=== PATIENT | female | born 1935 | race Hispanic/Latino ===

== ENCOUNTER 2020-09-09 19:42 | Inpatient (IN) | payer MEDICARE, OTHER ==
--- NOTE | 2020-09-10 10:01 | Consultation ---
History of Present Illness - Reason for Consult Consult date: 09/10/20 Medical management Requesting physician: KIERRA MORALES - History of Present Illness 85 YO Female with Vascular Dementia with Behavioral Disturbance, Cerebral Atherosclerosis admitted to [facility] for phychiatric stabilization. Consult placed by Dr. Morales for medical management. Pt seen and evaluated in the recreation room. Patient denies fever, chills, chest pain, palpitation, productive cough, skin rash, recent ill contacts, or known exposure to COVID-19. No reported nursing events. Past History Past Medical History: other (see HPI) Past Surgical History: No surgical history, Other (reviewed) Social history: single. denies: smoking, alcohol abuse Family history: no significant family history (reviewed) Medications and Allergies Allergies Allergy/AdvReac Type Severity Reaction Status Date / Time aspirin Allergy Unknown Unknown Verified 09/10/20 13:51 Home Medications Medication Instructions Recorded Confirmed Last Taken Type ALPRAZolam [Xanax TAB] 0.5 mg PO TID PRN #90 09/18/20 Unknown Rx Divalproex Sprinkle [Depakote 250 mg PO BID #60 cap 09/18/20 Unknown Rx Sprinkle] risperiDONE [RisperDAL] 0.5 mg PO BID #60 tablet 09/18/20 Unknown Rx traZODone [Desyrel] 75 mg PO QHS #45 tablet 09/18/20 Unknown Rx Active Meds: Active Medications Trazodone HCl (Trazodone 50 Mg Tab) 50 mg PO QHS [facility] Review of Systems Constitutional: no weight loss, no weight gain, no fever, no sweats Ears, nose, mouth and throat: no ear pain, no ear discharge, no decreased heari ng, no nose pain, no nasal congestion, no nasal discharge Breasts: no change in shape, no swelling, no mass Cardiovascular: no chest pain, no orthopnea, no edema Respiratory: no cough, no cough with sputum, no hemoptysis, no shortness of breath Gastrointestinal: no abdominal pain, no nausea, no vomiting, no diarrhea, no constipation, no change in bowel habits Genitourinary Female: no pelvic pain, no flank pain, no dysuria, no urinary frequency, no urgency Rectal: no pain, no incontinence, no bleeding Musculoskeletal: no neck stiffness, no neck pain Integumentary: no rash, no pruritis, no redness, no sores, no wounds, no jaundice Neurological: no head injury, no transient paralysis, no weakness, no numbness, no tingling, no syncope, no tremors Psychiatric: no anxiety, no memory loss, no change in libido Endocrine: no cold intolerance, no heat intolerance, no excessive thirst, no polydipsia, no nocturia, no excessive sweating Hematologic/Lymphatic: no easy bruising, no easy bleeding Allergic/Immunologic: no urticaria, no allergic rhinitis, no wheezing Exam - Constitutional General appearance: Present: no acute distress, well-nourished - EENT Eyes: Present: PERRL ENT: hearing intact, clear oral mucosa - Neck Neck: Present: supple, normal ROM - Respiratory Respiratory effort: normal Respiratory: bilateral: CTA - Cardiovascular Heart Sounds: Present: S1 & S2. Absent: rub, click - Extremities Extremities: pulses symmetrical, No edema Peripheral Pulses: within normal limits - Abdominal General gastrointestinal: Present: soft, non-tender, non-distended, normal bowel sounds Female genitourinary: Present: normal - Integumentary Integumentary: Present: clear, warm, dry - Musculoskeletal Musculoskeletal: gait normal, strength equal bilaterally - Psychiatric Psychiatric: appropriate mood/affect, intact judgment & insight - Neurologic Neurologic: CNII-XII intact, moves all extremities Results - Labs CBC & Chem 7: 09/13/20 19:58 Assessment and Plan - Patient Problems (1) Cerebral atherosclerosis Status: Acute Plan to address problem: Risk factor reduction, antiplatelet therapy as clinically dictated. (2) Dementia with behavioral disturbance Status: Acute Plan to address problem: Verbal prompting, verbal redirection, benzodiazepine therapy as clinically indicated.
[2020-09-10] MEDS: DIVALPROEX SPRINKLE 125 MG CAP PO SCH (21:24)
[2020-09-10] MEDS: traZODone 50 MG TAB PO SCH (21:24)
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
[2020-09-11] MEDS: ALPRAZolam 0.5 MG TAB PO SCH (10:53)
[2020-09-11] MEDS: DIVALPROEX SPRINKLE 125 MG CAP PO SCH ×2 (11:15→21:16)
[2020-09-11] MEDS: traZODone 50 MG TAB PO SCH (21:16)
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
[2020-09-12] MEDS: risperiDONE 0.25 MG TAB PO SCH ×2 (09:13→22:19)
[2020-09-12] MEDS: DIVALPROEX SPRINKLE 125 MG CAP PO SCH ×2 (09:13→22:19)
[2020-09-12] MEDS: ALPRAZolam 0.5 MG TAB PO SCH (09:13)
[2020-09-12] MEDS: traZODone 50 MG TAB PO SCH (22:20)
--- NOTE | 2020-09-13 08:00 | Progress Note ---
Subjective Date of service: 09/13/20 Principal diagnosis: Dementia with behavioral disturbance Subjective Comment: Per Psych Nurse:Today the patient spent "busy" on the unit. She rarely sits still. She paces the hallway and in the activity room. She asks staff repeatedly when she can go home. She gets an idea in her mind and will not let it go. Whatever she believes she will stubbornly refuse to think anything else. Her memory is so short that she forgets redirection in minutes. She denies si/hi/ah/vh. She is delusional about not being in a hospital and denying that she needs help. Her appetite is good and she is medication compliant. Will continue to monitor patient for safety. Psych Progress Patient with history of Dementia. She states she is doing okay this AM she guess, sleeping good and states she knows she is not in [place]. Pt asked when she will be released from here and be allowed to go home. Reason for continued acute inpatient psychiatric hospitalization: Patient to be observed for mood/behavior disturbance of aggressive behavior as reported prior to admission REVIEW OF SYSTEMS ROS cannot be reliably obtained from the patient due to her confusion MENTAL STATUS EXAMINATION General Appearance and Behavior: Age appropriate, good hygiene, wearing appropriate clothes, uncooperative polite with questioning. Cooperation: engaged Psychomotor Behavior: Psychomotor normal Mood: Affect and affective range: Flat Thought Process: Tangential, loose associattion Thought Content: Paranoid and confused Speech: Normal volume, Regular rate and rhythm, Intellectual Functioning: Poor Suicidal Ideation: N/A Homicidal Ideation: N/A Impulse Control: Unimpaired Insight and Judgment: Impaired Memory: memory impaired Attention:Distractible, Orientation: Alert, but disoriented and confused Assessment and Plan - Psychiatric problem (1) Dementia with behavioral disturbance Current Visit: Yes Status: Acute Treatment Plan Continue current medication. Patient on Risperdal and Depakote Patient admitted for inpatient psychiatric evaluation, medication adjustment and close monitoring The patient's behavior, mood, sleep and appetite will be closely monitored. Patient enrolled in individual and group therapeutic sessions and encouraged to attend. Patient provided with a safe and structured environment. Patient's physical health needs will be addressed by the Hospitalist. Hospitalist Consulted Labs including CBC, CMP, Lipid profile and Hemoglobin A1C levels ordered for [place] Social Assessment will be completed and the Instrument Mechanic Weapons System will work with patient and family to ensure a suitable and safe disposition Medication adjustment will be made as clinically indicated Usual Wellness Anabaptism/Preservation: - Start Trazodone 50 mg po QHS & 50 mg po QHS PRN between 10 PM & 2 AM for insomnia - Start Melatonin 5 mg po QHS to promote circadian rhythm - Start [place]-3 for brain health, reduce impulsivity, and as adjunctive treatment for mood disorder, continue upon discharge given overall benefits. - Start B1 prophylaxis with 200 mg po for 5 days The patient agreed on the treatment plan, understood the risk, benefit, alternative treatment, potential consequence of no treatment, and gave informed consent. Initial Certification Inpatient psych services: I certify that the inpatient psychiatric services are required for treatment that could reasonably be expected to improve the patient's condition. Estimated days: 5 Post hospital care: primary care provider, psychiatric provider Assessment and Plan - Patient Problems (1) Dementia with behavioral disturbance Current Visit: Yes Status: Acute Medications and Allergies Allergies Allergy/AdvReac Type Severity Reaction Status Date / Time aspirin Allergy Unknown Unknown Verified 09/10/20 13:51 Home Medications Medication Instructions Recorded Confirmed Last Taken Type ALPRAZolam [Xanax TAB] 0.5 mg PO TID PRN 09/10/20 09/10/20 Unknown History Divalproex Sprinkle [DepaKOTE 250 mg PO BID 09/10/20 09/10/20 Unknown History SPRINKLE] Active Meds: Active Medications Alprazolam (Alprazolam 0.5 Mg Tab) 0.5 mg PO QAM [facility] Last Admin: 09/12/20 09:13 Dose: 0.5 mg Documented by: Divalproex Sodium (Divalproex Sprinkle 125 Mg Cap) 250 mg PO BID [facility] Last Admin: 09/12/20 22:19 Dose: 250 mg Documented by: Risperidone (Risperidone 0.25 Mg Tab) 0.5 mg PO BID [facility] Last Admin: 09/12/20 22:19 Dose: 0.5 mg Documented by: Trazodone HCl (Trazodone 50 Mg Tab) 50 mg PO QHS [facility] Last Admin: 09/12/20 22:20 Dose: 50 mg Documented by: Results - Results Labs/Vitals: Laboratory Last Values POC Glucose 92 mg/dL (70-105) 09/12/20 06:22 Last Vital Signs Temp 98.1 F 09/12/20 19:27 Pulse 102 H 09/12/20 19:27 Resp 20 09/12/20 19:27 BP 109/73 09/12/20 19:27 Pulse Ox 95 09/12/20 19:27
[2020-09-13] MEDS: ALPRAZolam 0.5 MG TAB PO SCH (10:49)
[2020-09-13] MEDS: risperiDONE 0.25 MG TAB PO SCH ×2 (10:49→21:34)
[2020-09-13] MEDS: DIVALPROEX SPRINKLE 125 MG CAP PO SCH ×2 (10:49→21:34)
[2020-09-13 21:07] LABS: Alanine Aminotransferase 14 units/L (7-56); Albumin 3.8 g/dL (3.9-5); Blood Urea Nitrogen 16 mg/dL (7-17); Calcium 9.2 mg/dL (8.4-10.2); HDL Cholesterol 50 mg/dL (40-59); Hemolysis Index 7; LDL Cholesterol,Direct 106 mg/dL (50-130)
[2020-09-13 21:09] LABS: BUN/Creatinine Ratio 32
[2020-09-13] MEDS: traZODone 50 MG TAB PO SCH (21:34)
--- NOTE | 2020-09-14 07:58 | Progress Note ---
Subjective Date of service: 09/14/20 Principal diagnosis: Dementia with behavioral disturbance Subjective Comment: Per Psych Nurse:pt spent last evening in activity room interacting appropriately with selected peer, pt did not wander around the unit, pt is less confused, able to make needs know and follows direction, medication compliant, took 1 cap of depakote, pt stated that she can not take a lot of medication, no behavioral issue, slept all night, no distress noted, will continue to monitor for safety. Psych Progress Patient with Severe dementia, seen this AM and states she would like to get a ticket and fly back to [place], says thats where are family is and she would like to go there Reason for continued acute inpatient psychiatric hospitalization: Patient to be observed for mood/behavior disturbance of aggressive behavior as reported prior to admission MENTAL STATUS EXAMINATION General Appearance and Behavior: Age appropriate, good hygiene, wearing appropriate clothes, uncooperative polite with questioning. Cooperation: engaged Psychomotor Behavior: Psychomotor normal Mood: Affect and affective range: Flat Thought Process: Tangential, loose associattion Thought Content: Paranoid and confused Speech: Normal volume, Regular rate and rhythm, Intellectual Functioning: Poor Suicidal Ideation: N/A Homicidal Ideation: N/A Impulse Control: Unimpaired Insight and Judgment: Impaired Memory: memory impaired Attention:Distractible, Orientation: Alert, but disoriented and confused Assessment and Plan - Psychiatric problem (1) Dementia with behavioral disturbance Current Visit: Yes Status: Acute Treatment Plan Continue current medication. Patient on Risperdal and Depakote Patient admitted for inpatient psychiatric evaluation, medication adjustment and close monitoring The patient's behavior, mood, sleep and appetite will be closely monitored. Patient enrolled in individual and group therapeutic sessions and encouraged to attend. Patient provided with a safe and structured environment. Patient's physical health needs will be addressed by the Hospitalist. Hospitalist Consulted Labs including CBC, CMP, Lipid profile and Hemoglobin A1C levels ordered for baseline reference Social Assessment will be completed and the Registration Specialist will work with patient and family to ensure a suitable and safe disposition Medication adjustment will be made as clinically indicated Usual Wellness Adventism/Preservation: - Start Trazodone 50 mg po QHS & 50 mg po QHS PRN between 10 PM & 2 AM for insomnia - Start Melatonin 5 mg po QHS to promote circadian rhythm - Start [place]-3 for brain health, reduce impulsivity, and as adjunctive treatment for mood disorder, continue upon discharge given overall benefits. - Start B1 prophylaxis with 200 mg po for 5 days The patient agreed on the treatment plan, understood the risk, benefit, alternative treatment, potential consequence of no treatment, and gave informed consent. Initial Certification Inpatient psych services: I certify that the inpatient psychiatric services are required for treatment that could reasonably be expected to improve the patient's condition. Estimated days: 5 Post hospital care: primary care provider, psychiatric provider Assessment and Plan - Patient Problems (1) Dementia with behavioral disturbance Current Visit: Yes Status: Acute Medications and Allergies Allergies Allergy/AdvReac Type Severity Reaction Status Date / Time aspirin Allergy Unknown Unknown Verified 09/10/20 13:51 Home Medications Medication Instructions Recorded Confirmed Last Taken Type ALPRAZolam [Xanax TAB] 0.5 mg PO TID PRN 09/10/20 09/10/20 Unknown History Divalproex Sprinkle [DepaKOTE 250 mg PO BID 09/10/20 09/10/20 Unknown History SPRINKLE] Active Meds: Active Medications Alprazolam (Alprazolam 0.5 Mg Tab) 0.5 mg PO QAM [facility] [place] Last Admin: 09/13/20 10:49 Dose: 0.5 mg Documented by: Divalproex Sodium (Divalproex Sprinkle 125 Mg Cap) 250 mg PO BID [facility] Last Admin: 09/13/20 21:34 Dose: 250 mg Documented by: Risperidone (Risperidone 0.25 Mg Tab) 0.5 mg PO BID [facility] [place] Last Admin: 09/13/20 21:34 Dose: 0.5 mg Documented by: Trazodone HCl (Trazodone 50 Mg Tab) 50 mg PO QHS [facility] Last Admin: 09/13/20 21:34 Dose: 50 mg Documented by: Results - Results Labs/Vitals: Laboratory Last Values Sodium 138 mmol/L (137-145) 09/13/20 19:58 Potassium 3.9 mmol/L (3.6-5.0) 09/13/20 19:58 Chloride 99.6 mmol/L (98-107) 09/13/20 19:58 Carbon Dioxide 33 mmol/L (22-30) H 09/13/20 19:58 Anion Gap 9 mmol/L 09/13/20 19:58 BUN 16 mg/dL (7-17) 09/13/20 19:58 Creatinine 0.5 mg/dL (0.6-1.2) L 09/13/20 19:58 Estimated GFR > 60 ml/min 09/13/20 19:58 BUN/Creatinine Ratio 32 % 09/13/20 19:58 Glucose 92 mg/dL (65-100) 09/13/20 19:58 POC Glucose 92 mg/dL (70-105) 09/12/20 06:22 Hemoglobin A1c 6.0 % (4-6) 09/13/20 19:58 Calcium 9.2 mg/dL (8.4-10.2) 09/13/20 19:58 Total Bilirubin 0.30 mg/dL (0.1-1.2) 09/13/20 19:58 AST 17 units/L (5-40) 09/13/20 19:58 ALT 14 units/L (7-56) 09/13/20 19:58 Alkaline Phosphatase 84 units/L (35-129) 09/13/20 19:58 Total Protein 6.8 g/dL (6.3-8.2) 09/13/20 19:58 Albumin 3.8 g/dL (3.9-5) L 09/13/20 19:58 Albumin/Globulin Ratio 1.3 % 09/13/20 19:58 Triglycerides 136 mg/dL (2-149) 09/13/20 19:58 Cholesterol 175 mg/dL (50-199) 09/13/20 19:58 LDL Cholesterol Direct 106 mg/dL (50-130) 09/13/20 19:58 HDL Cholesterol 50 mg/dL (40-59) 09/13/20 19:58 Cholesterol/HDL Ratio 3.50 % 09/13/20 19:58 TSH 1.400 mlU/mL (0.270-4.200) 09/13/20 19:58 Last Vital Signs Temp 98.0 F 09/13/20 22:00 Pulse 89 09/13/20 22:00 Resp 18 09/13/20 22:00 BP 93/54 09/13/20 22:00 Pulse Ox 97 09/13/20 22:00
[2020-09-14] MEDS: risperiDONE 0.25 MG TAB PO SCH ×2 (09:32→22:10)
[2020-09-14] MEDS: DIVALPROEX SPRINKLE 125 MG CAP PO SCH ×2 (09:32→22:08)
[2020-09-14] MEDS: ALPRAZolam 0.5 MG TAB PO SCH (09:32)
[2020-09-14] MEDS: traZODone 50 MG TAB PO SCH (22:11)
--- NOTE | 2020-09-15 07:53 | Progress Note ---
Subjective Date of service: 09/15/20 Principal diagnosis: Dementia with behavioral disturbance Subjective Comment: Per Psych Nurse:pt spent last evening in activity room interacting appropriately with selected peer, pt did not wander around the unit, pt is less confused, able to make needs know and follows direction, medication compliant, took 1 cap of depakote, pt stated that she can not take a lot of medication, no behavioral issue, slept all night, no distress noted, will continue to monitor for safety. Psych Progress Patient with Severe dementia, patient reported doing fine, she is she does not know why she is here that she did not do anything. Informed pt she is not here because she did something, we are just making sure she is fine. Reason for continued acute inpatient psychiatric hospitalization: Patient has been without behv issues for 3 days, will continue to observe, anticipate Sunday discharge. MENTAL STATUS EXAMINATION General Appearance and Behavior: Age appropriate, good hygiene, wearing appropriate clothes, uncooperative polite with questioning. Cooperation: engaged Psychomotor Behavior: Psychomotor normal Mood: Affect and affective range: Flat Thought Process: Tangential, loose associattion Thought Content: Paranoid and confused Speech: Normal volume, Regular rate and rhythm, Intellectual Functioning: Poor Suicidal Ideation: N/A Homicidal Ideation: N/A Impulse Control: Unimpaired Insight and Judgment: Impaired Memory: memory impaired Attention:Distractible, Orientation: Alert, but disoriented and confused Assessment and Plan - Psychiatric problem (1) Dementia with behavioral disturbance Current Visit: Yes Status: Acute Treatment Plan Continue current medication. Patient on Risperdal and Depakote Patient admitted for inpatient psychiatric evaluation, medication adjustment and close monitoring The patient's behavior, mood, sleep and appetite will be closely monitored. Patient enrolled in individual and group therapeutic sessions and encouraged to attend. Patient provided with a safe and structured environment. Patient's physical health needs will be addressed by the Hospitalist. Hospitalist Consulted Labs including CBC, CMP, Lipid profile and Hemoglobin A1C levels ordered for baseline reference Social Assessment will be completed and the Frontload Driver will work with patient and family to ensure a suitable and safe disposition Medication adjustment will be made as clinically indicated Usual Wellness Jain/Preservation: - Start Trazodone 50 mg po QHS & 50 mg po QHS PRN between 10 PM & 2 AM for insomnia - Start Melatonin 5 mg po QHS to promote circadian rhythm - Start [place]-3 for brain health, reduce impulsivity, and as adjunctive treatment for mood disorder, continue upon discharge given overall benefits. - Start B1 prophylaxis with 200 mg po for 5 days The patient agreed on the treatment plan, understood the risk, benefit, alternative treatment, potential consequence of no treatment, and gave informed consent. Initial Certification Inpatient psych services: I certify that the inpatient psychiatric services are required for treatment that could reasonably be expected to improve the patient's condition. Estimated days: 3 Post hospital care: primary care provider, psychiatric provider Assessment and Plan - Patient Problems (1) Dementia with behavioral disturbance Current Visit: Yes Status: Acute Medications and Allergies Allergies Allergy/AdvReac Type Severity Reaction Status Date / Time aspirin Allergy Unknown Unknown Verified 09/10/20 13:51 Home Medications Medication Instructions Recorded Confirmed Last Taken Type ALPRAZolam [Xanax TAB] 0.5 mg PO TID PRN 09/10/20 09/10/20 Unknown History Divalproex Sprinkle [DepaKOTE 250 mg PO BID 09/10/20 09/10/20 Unknown History SPRINKLE] Active Meds: Active Medications Alprazolam (Alprazolam 0.5 Mg Tab) 0.5 mg PO QAM [facility] Last Admin: 09/14/20 09:32 Dose: 0.5 mg Documented by: Divalproex Sodium (Divalproex Sprinkle 125 Mg Cap) 250 mg PO BID [facility] Last Admin: 09/14/20 22:08 Dose: 250 mg Documented by: Risperidone (Risperidone 0.25 Mg Tab) 0.5 mg PO BID [facility] Last Admin: 09/14/20 22:10 Dose: 0.5 mg Documented by: Trazodone HCl (Trazodone 50 Mg Tab) 50 mg PO QHS [facility] Last Admin: 09/14/20 22:11 Dose: 50 mg Documented by: Results - Results Labs/Vitals: Laboratory Last Values Sodium 138 mmol/L (137-145) 09/13/20 19:58 Potassium 3.9 mmol/L (3.6-5.0) 09/13/20 19:58 Chloride 99.6 mmol/L (98-107) 09/13/20 19:58 Carbon Dioxide 33 mmol/L (22-30) H 09/13/20 19:58 Anion Gap 9 mmol/L 09/13/20 19:58 BUN 16 mg/dL (7-17) 09/13/20 19:58 Creatinine 0.5 mg/dL (0.6-1.2) L 09/13/20 19:58 Estimated GFR > 60 ml/min 09/13/20 19:58 BUN/Creatinine Ratio 32 % 09/13/20 19:58 Glucose 92 mg/dL (65-100) 09/13/20 19:58 POC Glucose 92 mg/dL (70-105) 09/12/20 06:22 Hemoglobin A1c 6.0 % (4-6) 09/13/20 19:58 Calcium 9.2 mg/dL (8.4-10.2) 09/13/20 19:58 Total Bilirubin 0.30 mg/dL (0.1-1.2) 09/13/20 19:58 AST 17 units/L (5-40) 09/13/20 19:58 ALT 14 units/L (7-56) 09/13/20 19:58 Alkaline Phosphatase 84 units/L (35-129) 09/13/20 19:58 Total Protein 6.8 g/dL (6.3-8.2) 09/13/20 19:58 Albumin 3.8 g/dL (3.9-5) L 09/13/20 19:58 Albumin/Globulin Ratio 1.3 % 09/13/20 19:58 Triglycerides 136 mg/dL (2-149) 09/13/20 19:58 Cholesterol 175 mg/dL (50-199) 09/13/20 19:58 LDL Cholesterol Direct 106 mg/dL (50-130) 09/13/20 19:58 HDL Cholesterol 50 mg/dL (40-59) 09/13/20 19:58 Cholesterol/HDL Ratio 3.50 % 09/13/20 19:58 TSH 1.400 mlU/mL (0.270-4.200) 09/13/20 19:58 Last Vital Signs Temp 97.4 F L 09/14/20 20:44 Pulse 91 H 09/14/20 20:44 Resp 20 09/14/20 20:44 BP 102/61 09/14/20 20:44 Pulse Ox 97 09/14/20 20:44
[2020-09-15] MEDS: risperiDONE 0.25 MG TAB PO SCH ×2 (10:18→21:27)
[2020-09-15] MEDS: DIVALPROEX SPRINKLE 125 MG CAP PO SCH ×2 (10:18→21:27)
[2020-09-15] MEDS: ALPRAZolam 0.5 MG TAB PO SCH (10:18)
[2020-09-15] MEDS: traZODone 50 MG TAB PO SCH (21:27)
--- NOTE | 2020-09-16 07:57 | Progress Note ---
Subjective Date of service: 09/16/20 Principal diagnosis: Dementia with behavioral disturbance Subjective Comment: Per Psych Nurse:pt spent last evening in activity room watching television, pt is alert and oriented to person, pleasantly confused, calm and cooperative, able to make needs known, medication compliant, ate 50% of snack, presents as sleeping for 7hrs, no distress noted, will continue to monitor for safety. Psych Progress Patient seen this AM, pt asking to be taken upstairs and I informed patient there is no upstairs. Patient walked off a bit and came back again asking the same thing. Patient with history of dementia and behv issues. Patient has been clam cooperative and med compliant Reason for continued acute inpatient psychiatric hospitalization: Pt can be discharged, stabilized per psychiatric stand point. MENTAL STATUS EXAMINATION General Appearance and Behavior: Age appropriate, good hygiene, wearing appropriate clothes, uncooperative polite with questioning. Cooperation: engaged Psychomotor Behavior: Psychomotor normal Mood: Affect and affective range: Flat Thought Process: Tangential, loose associattion Thought Content: Paranoid and confused Speech: Normal volume, Regular rate and rhythm, Intellectual Functioning: Poor Suicidal Ideation: N/A Homicidal Ideation: N/A Impulse Control: Unimpaired Insight and Judgment: Impaired Memory: memory impaired Attention:Distractible, Orientation: Alert, but disoriented and confused Assessment and Plan - Psychiatric problem (1) Dementia with behavioral disturbance Current Visit: Yes Status: Acute Treatment Plan Continue current medication. Patient on Risperdal and Depakote Patient admitted for inpatient psychiatric evaluation, medication adjustment and close monitoring The patient's behavior, mood, sleep and appetite will be closely monitored. Patient enrolled in individual and group therapeutic sessions and encouraged to attend. Patient provided with a safe and structured environment. Patient's physical health needs will be addressed by the Hospitalist. Hospitalist Consulted Labs including CBC, CMP, Lipid profile and Hemoglobin A1C levels ordered for baseline reference Social Assessment will be completed and the Police Detective will work with patient and family to ensure a suitable and safe disposition Medication adjustment will be made as clinically indicated Usual Wellness Baptism/Preservation: - Start Trazodone 50 mg po QHS & 50 mg po QHS PRN between 10 PM & 2 AM for insomnia - Start Melatonin 5 mg po QHS to promote circadian rhythm - Start [place]-3 for brain health, reduce impulsivity, and as adjunctive treatment for mood disorder, continue upon discharge given overall benefits. - Start B1 prophylaxis with 200 mg po for 5 days The patient agreed on the treatment plan, understood the risk, benefit, alternative treatment, potential consequence of no treatment, and gave informed consent. Initial Certification Inpatient psych services: I certify that the inpatient psychiatric services are required for treatment that could reasonably be expected to improve the patient's condition. Estimated days: 3 Post hospital care: primary care provider, psychiatric provider Assessment and Plan - Patient Problems (1) Dementia with behavioral disturbance Current Visit: Yes Status: Acute Medications and Allergies Allergies Allergy/AdvReac Type Severity Reaction Status Date / Time aspirin Allergy Unknown Unknown Verified 09/10/20 13:51 Home Medications Medication Instructions Recorded Confirmed Last Taken Type ALPRAZolam [Xanax TAB] 0.5 mg PO TID PRN 09/10/20 09/10/20 Unknown History Divalproex Sprinkle [DepaKOTE 250 mg PO BID 09/10/20 09/10/20 Unknown History SPRINKLE] Active Meds: Active Medications Alprazolam (Alprazolam 0.5 Mg Tab) 0.5 mg PO QAM [facility] Last Admin: 09/15/20 10:18 Dose: 0.5 mg Documented by: Divalproex Sodium (Divalproex Sprinkle 125 Mg Cap) 250 mg PO BID [facility] Last Admin: 09/15/20 21:27 Dose: 250 mg Documented by: Risperidone (Risperidone 0.25 Mg Tab) 0.5 mg PO BID [facility] Last Admin: 09/15/20 21:27 Dose: 0.5 mg Documented by: Trazodone HCl (Trazodone 50 Mg Tab) 50 mg PO QHS [facility] Last Admin: 09/15/20 21:27 Dose: 50 mg Documented by: Results - Results Labs/Vitals: Laboratory Last Values Sodium 138 mmol/L (137-145) 09/13/20 19:58 Potassium 3.9 mmol/L (3.6-5.0) 09/13/20 19:58 Chloride 99.6 mmol/L (98-107) 09/13/20 19:58 Carbon Dioxide 33 mmol/L (22-30) H 09/13/20 19:58 Anion Gap 9 mmol/L 09/13/20 19:58 BUN 16 mg/dL (7-17) 09/13/20 19:58 Creatinine 0.5 mg/dL (0.6-1.2) L 09/13/20 19:58 Estimated GFR > 60 ml/min 09/13/20 19:58 BUN/Creatinine Ratio 32 % 09/13/20 19:58 Glucose 92 mg/dL (65-100) 09/13/20 19:58 POC Glucose 92 mg/dL (70-105) 09/12/20 06:22 Hemoglobin A1c 6.0 % (4-6) 09/13/20 19:58 Calcium 9.2 mg/dL (8.4-10.2) 09/13/20 19:58 Total Bilirubin 0.30 mg/dL (0.1-1.2) 09/13/20 19:58 AST 17 units/L (5-40) 09/13/20 19:58 ALT 14 units/L (7-56) 09/13/20 19:58 Alkaline Phosphatase 84 units/L (35-129) 09/13/20 19:58 Total Protein 6.8 g/dL (6.3-8.2) 09/13/20 19:58 Albumin 3.8 g/dL (3.9-5) L 09/13/20 19:58 Albumin/Globulin Ratio 1.3 % 09/13/20 19:58 Triglycerides 136 mg/dL (2-149) 09/13/20 19:58 Cholesterol 175 mg/dL (50-199) 09/13/20 19:58 LDL Cholesterol Direct 106 mg/dL (50-130) 09/13/20 19:58 HDL Cholesterol 50 mg/dL (40-59) 09/13/20 19:58 Cholesterol/HDL Ratio 3.50 % 09/13/20 19:58 TSH 1.400 mlU/mL (0.270-4.200) 09/13/20 19:58 Last Vital Signs Temp 97.3 F L 09/15/20 19:36 Pulse 91 H 09/15/20 19:37 Resp 17 09/15/20 19:36 BP 118/73 09/15/20 19:36 Pulse Ox 97 09/15/20 19:37
[2020-09-16] MEDS: ALPRAZolam 0.5 MG TAB PO SCH (09:00)
[2020-09-16] MEDS: DIVALPROEX SPRINKLE 125 MG CAP PO SCH ×2 (09:00→22:32)
[2020-09-16] MEDS: risperiDONE 0.25 MG TAB PO SCH ×2 (09:00→22:32)
--- NOTE | 2020-09-16 13:19 | XRay Report ---
CHEST 1 VIEW INDICATION / CLINICAL INFORMATION: r/o TB. Cough FINDINGS: SUPPORT DEVICES: None. HEART / MEDIASTINUM: No significant abnormality. LUNGS / PLEURA: No significant pulmonary or pleural abnormality. No pneumothorax. ADDITIONAL FINDINGS: No significant additional findings. IMPRESSION: 1. No acute findings. Streaky linear opacity noted within the medial aspects of both upper lungs coul d represent scarring. CT is suggested for further evaluation. Signer Name: Melecio Leslie MD Signed: 09/16/2020 1:14 PM Workstation Name: [id number]
[2020-09-16] MEDS: traZODone 50 MG TAB PO SCH (22:33)
[2020-09-17] MEDS: DIVALPROEX SPRINKLE 125 MG CAP PO SCH ×2 (09:09→21:24)
[2020-09-17] MEDS: ALPRAZolam 0.5 MG TAB PO SCH (09:10)
[2020-09-17] MEDS: risperiDONE 0.25 MG TAB PO SCH ×2 (09:10→21:25)
--- NOTE | 2020-09-17 10:57 | Progress Note ---
Subjective Date of service: 09/17/20 Principal diagnosis: Dementia with behavioral disturbance Subjective Comment: The patient was seen today. She is calm and cooperative. She is confused. She says she slept okay, but the nursing staff states the patient has been up all night. She denies SI/HI or hallucinations of any kind. Reason for continued acute inpatient psychiatric hospitalization: Patient can be discharged, stabilized per psychiatric stand point. She is awaiting placement per . As soon as this is secured the patient is cleared psych-hartley for discharge. MENTAL STATUS EXAMINATION General Appearance and Behavior: Age appropriate, good hygiene, wearing appropriate clothes, uncooperative polite with questioning. Cooperation: engaged Psychomotor Behavior: Psychomotor normal Mood: Affect and affective range: Flat Thought Process: Tangential, loose associattion Thought Content: Paranoid and confused Speech: Normal volume, Regular rate and rhythm, Intellectual Functioning: Poor Suicidal Ideation: N/A Homicidal Ideation: N/A Impulse Control: Unimpaired Insight and Judgment: Impaired Memory: memory impaired Attention:Distractible, Orientation: Alert, but disoriented and confused Assessment and Plan (1) Dementia with behavioral disturbance Current Visit: Yes Status: Acute Treatment Plan Patient admitted for inpatient psychiatric evaluation, medication adjustment and close monitoring The patient's behavior, mood, sleep and appetite will be closely monitored. Patient enrolled in individual and group therapeutic sessions and encouraged to attend. Patient provided with a safe and structured environment. Patient's physical health needs will be addressed by the Hospitalist. Hospitalist Consulted Labs including CBC, CMP, Lipid profile and Hemoglobin A1C levels ordered for baseline reference Social Assessment will be completed and the Water Vessel Captain will work with patient and family to ensure a suitable and safe disposition Medication adjustment will be made as clinically indicated Increased Trazodone 75mg po qhs to improve sleep Usual Wellness Druze/Preservation: - Start Trazodone 50 mg po QHS & 50 mg po QHS PRN between 10 PM & 2 AM for insomnia - Start Melatonin 5 mg po QHS to promote circadian rhythm - Start [place]-3 for brain health, reduce impulsivity, and as adjunctive treatment for mood disorder, continue upon discharge given overall benefits. - Start B1 prophylaxis with 200 mg po for 5 days The patient agreed on the treatment plan, understood the risk, benefit, alternative treatment, potential consequence of no treatment, and gave informed consent. Estimated days: 3 Post hospital care: primary care provider, psychiatric provider Medications and Allergies Allergies Allergy/AdvReac Type Severity Reaction Status Date / Time aspirin Allergy Unknown Unknown Verified 09/10/20 13:51 Home Medications Medication Instructions Recorded Confirmed Last Taken Type ALPRAZolam [Xanax TAB] 0.5 mg PO TID PRN 09/10/20 09/10/20 Unknown History Divalproex Sprinkle [DepaKOTE 250 mg PO BID 09/10/20 09/10/20 Unknown History SPRINKLE] Active Meds: Active Medications Alprazolam (Alprazolam 0.5 Mg Tab) 0.5 mg PO QAM [facility] Last Admin: 09/17/20 09:10 Dose: 0.5 mg Documented by: Divalproex Sodium (Divalproex Sprinkle 125 Mg Cap) 250 mg PO BID [facility] Last Admin: 09/17/20 09:09 Dose: 250 mg Documented by: Risperidone (Risperidone 0.25 Mg Tab) 0.5 mg PO BID [facility] Last Admin: 09/17/20 09:10 Dose: 0.5 mg Documented by: Trazodone HCl (Trazodone 50 Mg Tab) 50 mg PO QHS [facility] Last Admin: 09/16/20 22:33 Dose: 50 mg Documented by: Results - Results Labs/Vitals: Laboratory Last Values Sodium 138 mmol/L (137-145) 09/13/20 19:58 Potassium 3.9 mmol/L (3.6-5.0) 09/13/20 19:58 Chloride 99.6 mmol/L (98-107) 09/13/20 19:58 Carbon Dioxide 33 mmol/L (22-30) H 09/13/20 19:58 Anion Gap 9 mmol/L 09/13/20 19:58 BUN 16 mg/dL (7-17) 09/13/20 19:58 Creatinine 0.5 mg/dL (0.6-1.2) L 09/13/20 19:58 Estimated GFR > 60 ml/min 09/13/20 19:58 BUN/Creatinine Ratio 32 % 09/13/20 19:58 Glucose 92 mg/dL (65-100) 09/13/20 19:58 POC Glucose 92 mg/dL (70-105) 09/12/20 06:22 Hemoglobin A1c 6.0 % (4-6) 09/13/20 19:58 Calcium 9.2 mg/dL (8.4-10.2) 09/13/20 19:58 Total Bilirubin 0.30 mg/dL (0.1-1.2) 09/13/20 19:58 AST 17 units/L (5-40) 09/13/20 19:58 ALT 14 units/L (7-56) 09/13/20 19:58 Alkaline Phosphatase 84 units/L (35-129) 09/13/20 19:58 Total Protein 6.8 g/dL (6.3-8.2) 09/13/20 19:58 Albumin 3.8 g/dL (3.9-5) L 09/13/20 19:58 Albumin/Globulin Ratio 1.3 % 09/13/20 19:58 Triglycerides 136 mg/dL (2-149) 09/13/20 19:58 Cholesterol 175 mg/dL (50-199) 09/13/20 19:58 LDL Cholesterol Direct 106 mg/dL (50-130) 09/13/20 19:58 HDL Cholesterol 50 mg/dL (40-59) 09/13/20 19:58 Cholesterol/HDL Ratio 3.50 % 09/13/20 19:58 TSH 1.400 mlU/mL (0.270-4.200) 09/13/20 19:58 Last Vital Signs Temp 97.6 F 09/16/20 19:50 Pulse 93 H 09/16/20 19:50 Resp 18 09/16/20 19:50 BP 107/69 09/16/20 19:50 Pulse Ox 97 09/16/20 19:50
[2020-09-17] MEDS: traZODone 50 MG TAB PO SCH (21:24)
--- NOTE | 2020-09-18 08:56 | Progress Note ---
Subjective Date of service: 09/18/20 Principal diagnosis: Dementia with behavioral disturbance Subjective Comment: The patient was seen today. She is seen walking up to another patient. She is confused, but calm and pleasant. She denies SI/HI or hallucinations of any kind. Reason for continued acute inpatient psychiatric hospitalization: Patient can be discharged, stabilized per psychiatric stand point. She is awaiting placement per . As soon as this is secured the patient is cleared psych-hartley for discharge. REVIEW OF SYSTEMS Constitutional: Negative for weight loss ENT: Negative for stridor Respiratory: Negative for cough or hemoptysis All other systems reviewed and are negative MENTAL STATUS EXAMINATION General Appearance and Behavior: Age appropriate, good hygiene, wearing appropriate clothes, uncooperative polite with questioning. Cooperation: engaged Psychomotor Behavior: Psychomotor normal Mood: Affect and affective range: Flat Thought Process: Tangential, loose associattion Thought Content: Paranoid and confused Speech: Normal volume, Regular rate and rhythm, Intellectual Functioning: Poor Suicidal Ideation: N/A Homicidal Ideation: N/A Impulse Control: Unimpaired Insight and Judgment: Impaired Memory: memory impaired Attention:Distractible, Orientation: Alert, but disoriented and confused Assessment and Plan (1) Dementia with behavioral disturbance Current Visit: Yes Status: Acute Treatment Plan Patient admitted for inpatient psychiatric evaluation, medication adjustment and close monitoring The patient's behavior, mood, sleep and appetite will be closely monitored. Patient enrolled in individual and group therapeutic sessions and encouraged to attend. Patient provided with a safe and structured environment. Patient's physical health needs will be addressed by the Hospitalist. Hospitalist Consulted Labs including CBC, CMP, Lipid profile and Hemoglobin A1C levels ordered for baseline reference Social Assessment will be completed and the Wire Drawing Machine Tender will work with patient and family to ensure a suitable and safe disposition Medication adjustment will be made as clinically indicated Increased Trazodone 75mg po qhs to improve sleep yesterday No changes today Usual Wellness [employer]/Preservation: - Start Trazodone 50 mg po QHS & 50 mg po QHS PRN between 10 PM & 2 AM for insomnia - Start Melatonin 5 mg po QHS to promote circadian rhythm - Start [place]-3 for brain health, reduce impulsivity, and as adjunctive treatment for mood disorder, continue upon discharge given overall benefits. - Start B1 prophylaxis with 200 mg po for 5 days The patient agreed on the treatment plan, understood the risk, benefit, alternative treatment, potential consequence of no treatment, and gave informed consent. Estimated days: 3 Post hospital care: primary care provider, psychiatric provider Medications and Allergies Allergies Allergy/AdvReac Type Severity Reaction Status Date / Time aspirin Allergy Unknown Unknown Verified 09/10/20 13:51 Home Medications Medication Instructions Recorded Confirmed Last Taken Type ALPRAZolam [Xanax TAB] 0.5 mg PO TID PRN #90 09/18/20 Unknown Rx Divalproex Sprinkle [Depakote 250 mg PO BID #60 cap 09/18/20 Unknown Rx Sprinkle] risperiDONE [RisperDAL] 0.5 mg PO BID #60 tablet 09/18/20 Unknown Rx traZODone [Desyrel] 75 mg PO QHS #45 tablet 09/18/20 Unknown Rx Active Meds: Active Medications Alprazolam (Alprazolam 0.5 Mg Tab) 0.5 mg PO QAM [facility] Last Admin: 09/17/20 09:10 Dose: 0.5 mg Documented by: Divalproex Sodium (Divalproex Sprinkle 125 Mg Cap) 250 mg PO BID [facility] Last Admin: 09/17/20 21:24 Dose: 250 mg Documented by: Risperidone (Risperidone 0.25 Mg Tab) 0.5 mg PO BID [facility] Last Admin: 09/17/20 21:25 Dose: 0.5 mg Documented by: Trazodone HCl (Trazodone 50 Mg Tab) 75 mg PO QHS [facility] Last Admin: 09/17/20 21:24 Dose: 75 mg Documented by: Results - Results Labs/Vitals: Laboratory Last Values Sodium 138 mmol/L (137-145) 09/13/20 19:58 Potassium 3.9 mmol/L (3.6-5.0) 09/13/20 19:58 Chloride 99.6 mmol/L (98-107) 09/13/20 19:58 Carbon Dioxide 33 mmol/L (22-30) H 09/13/20 19:58 Anion Gap 9 mmol/L 09/13/20 19:58 BUN 16 mg/dL (7-17) 09/13/20 19:58 Creatinine 0.5 mg/dL (0.6-1.2) L 09/13/20 19:58 Estimated GFR > 60 ml/min 09/13/20 19:58 BUN/Creatinine Ratio 32 % 09/13/20 19:58 Glucose 92 mg/dL (65-100) 09/13/20 19:58 POC Glucose 92 mg/dL (70-105) 09/12/20 06:22 Hemoglobin A1c 6.0 % (4-6) 09/13/20 19:58 Calcium 9.2 mg/dL (8.4-10.2) 09/13/20 19:58 Total Bilirubin 0.30 mg/dL (0.1-1.2) 09/13/20 19:58 AST 17 units/L (5-40) 09/13/20 19:58 ALT 14 units/L (7-56) 09/13/20 19:58 Alkaline Phosphatase 84 units/L (35-129) 09/13/20 19:58 Total Protein 6.8 g/dL (6.3-8.2) 09/13/20 19:58 Albumin 3.8 g/dL (3.9-5) L 09/13/20 19:58 Albumin/Globulin Ratio 1.3 % 09/13/20 19:58 Triglycerides 136 mg/dL (2-149) 09/13/20 19:58 Cholesterol 175 mg/dL (50-199) 09/13/20 19:58 LDL Cholesterol Direct 106 mg/dL (50-130) 09/13/20 19:58 HDL Cholesterol 50 mg/dL (40-59) 09/13/20 19:58 Cholesterol/HDL Ratio 3.50 % 09/13/20 19:58 TSH 1.400 mlU/mL (0.270-4.200) 09/13/20 19:58 Last Vital Signs Temp 97.9 F 09/17/20 19:39 Pulse 83 09/17/20 19:39 Resp 18 09/17/20 19:39 BP 94/58 09/17/20 19:39 Pulse Ox 96 09/17/20 19:39
[2020-09-18] MEDS: risperiDONE 0.25 MG TAB PO SCH ×2 (09:14→21:08)
[2020-09-18] MEDS: ALPRAZolam 0.5 MG TAB PO SCH (09:15)
[2020-09-18] MEDS: DIVALPROEX SPRINKLE 125 MG CAP PO SCH ×2 (09:15→21:08)
[2020-09-18] MEDS: traZODone 50 MG TAB PO SCH (21:08)
--- NOTE | 2020-09-19 09:24 | Progress Note ---
Subjective Date of service: 09/19/20 Principal diagnosis: Dementia with behavioral disturbance Subjective Comment: The patient was seen today. She says she's doing "not too bad." She denies SI/HI. The nursing staff states the patient has not been sleeping and has been wandering. Reason for continued acute inpatient psychiatric hospitalization: Patient can be discharged, stabilized per psychiatric stand point. She is awaiting placement per . As soon as this is secured the patient is cleared psych-hartley for discharge. REVIEW OF SYSTEMS Constitutional: Negative for weight loss ENT: Negative for stridor Respiratory: Negative for cough or hemoptysis All other systems reviewed and are negative MENTAL STATUS EXAMINATION General Appearance and Behavior: Age appropriate, good hygiene, wearing appropriate clothes, uncooperative polite with questioning. Cooperation: engaged Psychomotor Behavior: Psychomotor normal Mood: Affect and affective range: Flat Thought Process: Tangential, loose associattion Thought Content: Paranoid and confused Speech: Normal volume, Regular rate and rhythm, Intellectual Functioning: Poor Suicidal Ideation: N/A Homicidal Ideation: N/A Impulse Control: Unimpaired Insight and Judgment: Impaired Memory: memory impaired Attention: Distractible, Orientation: Alert, but disoriented and confused Assessment and Plan (1) Dementia with behavioral disturbance Current Visit: Yes Status: Acute Treatment Plan Patient admitted for inpatient psychiatric evaluation, medication adjustment and close monitoring The patient's behavior, mood, sleep and appetite will be closely monitored. Patient enrolled in individual and group therapeutic sessions and encouraged to attend. Patient provided with a safe and structured environment. Patient's physical health needs will be addressed by the Hospitalist. Hospitalist Consulted Labs including CBC, CMP, Lipid profile and Hemoglobin A1C levels ordered for baseline reference Social Assessment will be completed and the Patient Financial Rep will work with patient and family to ensure a suitable and safe disposition Medication adjustment will be made as clinically indicated Mirtazepine 7.5mg po qhs Usual Wellness [employer]/Preservation: - Start Trazodone 50 mg po QHS & 50 mg po QHS PRN between 10 PM & 2 AM for insomnia - Start Melatonin 5 mg po QHS to promote circadian rhythm - Start [place]-3 for brain health, reduce impulsivity, and as adjunctive treatment for mood disorder, continue upon discharge given overall benefits. - Start B1 prophylaxis with 200 mg po for 5 days The patient agreed on the treatment plan, understood the risk, benefit, alternative treatment, potential consequence of no treatment, and gave informed consent. Estimated days: 3 Post hospital care: primary care provider, psychiatric provider Medications and Allergies Allergies Allergy/AdvReac Type Severity Reaction Status Date / Time aspirin Allergy Unknown Unknown Verified 09/10/20 13:51 Home Medications Medication Instructions Recorded Confirmed Last Taken Type ALPRAZolam [Xanax TAB] 0.5 mg PO TID PRN #90 09/18/20 Unknown Rx Divalproex Sprinkle [Depakote 250 mg PO BID #60 cap 09/18/20 Unknown Rx Sprinkle] risperiDONE [RisperDAL] 0.5 mg PO BID #60 tablet 09/18/20 Unknown Rx traZODone [Desyrel] 75 mg PO QHS #45 tablet 09/18/20 Unknown Rx Active Meds: Active Medications Alprazolam (Alprazolam 0.5 Mg Tab) 0.5 mg PO QAM [facility] Last Admin: 09/18/20 09:15 Dose: 0.5 mg Documented by: Divalproex Sodium (Divalproex Sprinkle 125 Mg Cap) 250 mg PO BID [facility] Last Admin: 09/18/20 21:08 Dose: 250 mg Documented by: Risperidone (Risperidone 0.25 Mg Tab) 0.5 mg PO BID [facility] Last Admin: 09/18/20 21:08 Dose: 0.5 mg Documented by: Trazodone HCl (Trazodone 50 Mg Tab) 75 mg PO QHS [facility] Last Admin: 09/18/20 21:08 Dose: 75 mg Documented by: Results - Results Labs/Vitals: Laboratory Last Values Sodium 138 mmol/L (137-145) 09/13/20 19:58 Potassium 3.9 mmol/L (3.6-5.0) 09/13/20 19:58 Chloride 99.6 mmol/L (98-107) 09/13/20 19:58 Carbon Dioxide 33 mmol/L (22-30) H 09/13/20 19:58 Anion Gap 9 mmol/L 09/13/20 19:58 BUN 16 mg/dL (7-17) 09/13/20 19:58 Creatinine 0.5 mg/dL (0.6-1.2) L 09/13/20 19:58 Estimated GFR > 60 ml/min 09/13/20 19:58 BUN/Creatinine Ratio 32 % 09/13/20 19:58 Glucose 92 mg/dL (65-100) 09/13/20 19:58 POC Glucose 92 mg/dL (70-105) 09/12/20 06:22 Hemoglobin A1c 6.0 % (4-6) 09/13/20 19:58 Calcium 9.2 mg/dL (8.4-10.2) 09/13/20 19:58 Total Bilirubin 0.30 mg/dL (0.1-1.2) 09/13/20 19:58 AST 17 units/L (5-40) 09/13/20 19:58 ALT 14 units/L (7-56) 09/13/20 19:58 Alkaline Phosphatase 84 units/L (35-129) 09/13/20 19:58 Total Protein 6.8 g/dL (6.3-8.2) 09/13/20 19:58 Albumin 3.8 g/dL (3.9-5) L 09/13/20 19:58 Albumin/Globulin Ratio 1.3 % 09/13/20 19:58 Triglycerides 136 mg/dL (2-149) 09/13/20 19:58 Cholesterol 175 mg/dL (50-199) 09/13/20 19:58 LDL Cholesterol Direct 106 mg/dL (50-130) 09/13/20 19:58 HDL Cholesterol 50 mg/dL (40-59) 09/13/20 19:58 Cholesterol/HDL Ratio 3.50 % 09/13/20 19:58 TSH 1.400 mlU/mL (0.270-4.200) 09/13/20 19:58 Last Vital Signs Temp 97.8 F 09/19/20 09:00 Pulse 60 09/19/20 09:00 Resp 20 09/19/20 09:00 BP 94/58 09/19/20 09:00 Pulse Ox 98 09/18/20 19:31
[2020-09-19] MEDS: ALPRAZolam 0.5 MG TAB PO SCH (09:25)
[2020-09-19] MEDS: DIVALPROEX SPRINKLE 125 MG CAP PO SCH ×2 (09:26→21:37)
[2020-09-19] MEDS: risperiDONE 0.25 MG TAB PO SCH ×2 (09:26→21:38)
[2020-09-19] MEDS: traZODone 50 MG TAB PO SCH (21:37)
[2020-09-19] MEDS: MIRTAZAPINE 15 MG TAB PO SCH (21:38)
[2020-09-20] MEDS: ALPRAZolam 0.5 MG TAB PO SCH (09:40)
[2020-09-20] MEDS: risperiDONE 0.25 MG TAB PO SCH ×2 (09:40→21:11)
[2020-09-20] MEDS: DIVALPROEX SPRINKLE 125 MG CAP PO SCH ×2 (09:40→21:12)
--- NOTE | 2020-09-20 11:02 | Progress Note ---
Subjective Date of service: 09/20/20 Principal diagnosis: Dementia with behavioral disturbance Subjective Comment: Per Nurse Note: pt rested well overnight, slept for approximately 8hrs, no distress noted, will continue to monitor for safety. Patient seen eating breakfast. She report " I'm feeling good." patient states "I don't feel good about anything, I can't take care of myself." patient continues to present with some confusion. She denies any suicidal/homicidal ideation and denies AVHs. Reason for continued acute inpatient psychiatric hospitalization: Patient can be discharged, stabilized per psychiatric stand point. She is awaiting placement per . As soon as this is secured the patient is cleared psych-hartley for discharge. REVIEW OF SYSTEMS Constitutional: Negative for weight loss ENT: Negative for stridor Respiratory: Negative for cough or hemoptysis All other systems reviewed and are negative MENTAL STATUS EXAMINATION General Appearance and Behavior: Age appropriate, good hygiene, wearing appropriate clothes, uncooperative polite with questioning. Cooperation: engaged Psychomotor Behavior: Psychomotor normal Mood: "I'm feeling good" Affect and affective range: Flat Thought Process: Tangential, loose associattion Thought Content: Paranoid and confused Speech: Normal volume, Regular rate and rhythm, Intellectual Functioning: Poor Suicidal Ideation: N/A Homicidal Ideation: N/A Impulse Control: Unimpaired Insight and Judgment: Impaired Memory: memory impaired Attention: Distractible, Orientation: Alert, but disoriented and confused Assessment and Plan (1) Dementia with behavioral disturbance Current Visit: Yes Status: Acute Treatment Plan Patient admitted for inpatient psychiatric evaluation, medication adjustment and close monitoring The patient's behavior, mood, sleep and appetite will be closely monitored. Patient enrolled in individual and group therapeutic sessions and encouraged to attend. Patient provided with a safe and structured environment. Patient's physical health needs will be addressed by the Hospitalist. Hospitalist Consulted Labs including CBC, CMP, Lipid profile and Hemoglobin A1C levels ordered for baseline reference Social Assessment will be completed and the Kitchen Runner will work with patient and family to ensure a suitable and safe disposition Medication adjustment will be made as clinically indicated Continue Mirtazepine 7.5mg po qhs Usual Wellness [employer]/Preservation: - Continue-Trazodone 50 mg po QHS & 50 mg po QHS PRN between 10 PM & 2 AM for insomnia - Continue-Melatonin 5 mg po QHS to promote circadian rhythm - Continue- [place]-3 for brain health, reduce impulsivity, and as adjunctive treatment for mood disorder, continue upon discharge given overall benefits. - Continue- B1 prophylaxis with 200 mg po for 5 days The patient agreed on the treatment plan, understood the risk, benefit, alternative treatment, potential consequence of no treatment, and gave informed consent. Estimated days: 3 Post hospital care: primary care provider, psychiatric provider Medications and Allergies Allergies Allergy/AdvReac Type Severity Reaction Status Date / Time aspirin Allergy Unknown Unknown Verified 09/10/20 13:51 Home Medications Medication Instructions Recorded Confirmed Last Taken Type ALPRAZolam [Xanax TAB] 0.5 mg PO TID PRN #90 09/18/20 Unknown Rx Divalproex Sprinkle [Depakote 250 mg PO BID #60 cap 09/18/20 Unknown Rx Sprinkle] risperiDONE [RisperDAL] 0.5 mg PO BID #60 tablet 09/18/20 Unknown Rx traZODone [Desyrel] 75 mg PO QHS #45 tablet 09/18/20 Unknown Rx Active Meds: Active Medications Alprazolam (Alprazolam 0.5 Mg Tab) [facility] [place] [facility] Admin: 09/20/20 09:40 Dose: 0.5 mg Documented by: Divalproex Sodium (Divalproex Sprinkle 125 Mg Cap) 250 mg PO BID [facility] Last Admin: 09/20/20 09:40 Dose: 250 mg Documented by: Mirtazapine (Mirtazapine 15 Mg Tab) 7.5 mg PO QHS [facility] Last Admin: 09/19/20 21:38 Dose: 7.5 mg Documented by: Risperidone (Risperidone 0.25 Mg Tab) 0.5 mg PO BID [facility] Last Admin: 09/20/20 09:40 Dose: 0.5 mg Documented by: Trazodone HCl (Trazodone 50 Mg Tab) 75 mg PO QHS [facility] Last Admin: 09/19/20 21:37 Dose: 75 mg Documented by: Results - Results Labs/Vitals: Laboratory Last Values Sodium 138 mmol/L (137-145) 09/13/20 19:58 Potassium 3.9 mmol/L (3.6-5.0) 09/13/20 19:58 Chloride 99.6 mmol/L (98-107) 09/13/20 19:58 Carbon Dioxide 33 mmol/L (22-30) H 09/13/20 19:58 Anion Gap 9 mmol/L 09/13/20 19:58 BUN 16 mg/dL (7-17) 09/13/20 19:58 Creatinine 0.5 mg/dL (0.6-1.2) L 09/13/20 19:58 Estimated GFR > 60 ml/min 09/13/20 19:58 BUN/Creatinine Ratio 32 % 09/13/20 19:58 Glucose 92 mg/dL (65-100) 09/13/20 19:58 POC Glucose 92 mg/dL (70-105) 09/12/20 06:22 Hemoglobin A1c 6.0 % (4-6) 09/13/20 19:58 Calcium 9.2 mg/dL (8.4-10.2) 09/13/20 19:58 Total Bilirubin 0.30 mg/dL (0.1-1.2) 09/13/20 19:58 AST 17 units/L (5-40) 09/13/20 19:58 ALT 14 units/L (7-56) 09/13/20 19:58 Alkaline Phosphatase 84 units/L (35-129) 09/13/20 19:58 Total Protein 6.8 g/dL (6.3-8.2) 09/13/20 19:58 Albumin 3.8 g/dL (3.9-5) L 09/13/20 19:58 Albumin/Globulin Ratio 1.3 % 09/13/20 19:58 Triglycerides 136 mg/dL (2-149) 09/13/20 19:58 Cholesterol 175 mg/dL (50-199) 09/13/20 19:58 LDL Cholesterol Direct 106 mg/dL (50-130) 09/13/20 19:58 HDL Cholesterol 50 mg/dL (40-59) 09/13/20 19:58 Cholesterol/HDL Ratio 3.50 % 09/13/20 19:58 TSH 1.400 mlU/mL (0.270-4.200) 09/13/20 19:58 Last Vital Signs Temp 98.6 F 09/20/20 07:53 Pulse 84 09/20/20 07:53 Resp 18 09/20/20 07:53 BP 112/73 09/20/20 07:53 Pulse Ox 92 09/20/20 07:53
--- NOTE | 2020-09-20 11:32 | Event Note ---
Date: 09/20/20 Attempted to speak with the patient's son, Mr. Smith, about the patient's progress progress and discharge planning. He did not answer and voicemail box was full.
[2020-09-20] MEDS: MIRTAZAPINE 15 MG TAB PO SCH (21:12)
[2020-09-20] MEDS: traZODone 50 MG TAB PO SCH (21:13)
[2020-09-21] MEDS: risperiDONE 0.25 MG TAB PO SCH ×2 (09:26→22:20)
[2020-09-21] MEDS: DIVALPROEX SPRINKLE 125 MG CAP PO SCH ×2 (09:26→22:57)
[2020-09-21] MEDS: ALPRAZolam 0.5 MG TAB PO SCH (09:26)
--- NOTE | 2020-09-21 12:01 | Progress Note ---
Subjective Date of service: 09/21/20 Principal diagnosis: Dementia with behavioral disturbance Subjective Comment: Per Nurse Note: pt rested quietly overnight, slept for 4hrs, no distress noted, will continue to monitor for safety. Patient was seen pacing the halls. Patient continues to be confused. Patient is compliant with medication per nurse. Patient states mood as "good, but I'm too far away from home." Patient denies suicidal/homicidal ideation and denies AVHs. REVIEW OF SYSTEMS Constitutional: Negative for weight loss ENT: Negative for stridor Respiratory: Negative for cough or hemoptysis All other systems reviewed and are negative MENTAL STATUS EXAMINATION General Appearance and Behavior: Age appropriate, good hygiene, wearing appropriate clothes, uncooperative polite with questioning. Cooperation: engaged Psychomotor Behavior: Psychomotor normal Mood: " good" Affect and affective range: Flat Thought Process: Tangential, loose associattion Thought Content: Paranoid and confused Speech: Normal volume, Regular rate and rhythm, Intellectual Functioning: Poor Suicidal Ideation: N/A Homicidal Ideation: N/A Impulse Control: Unimpaired Insight and Judgment: Impaired Memory: memory impaired Attention: Distractible, Orientation: Alert, but disoriented and confused Assessment and Plan (1) Dementia with behavioral disturbance Current Visit: Yes Status: Acute Treatment Plan Patient admitted for inpatient psychiatric evaluation, medication adjustment and close monitoring The patient's behavior, mood, sleep and appetite will be closely monitored. Patient enrolled in individual and group therapeutic sessions and encouraged to attend. Patient provided with a safe and structured environment. Patient's physical health needs will be addressed by the Hospitalist. Hospitalist Consulted Labs including CBC, CMP, Lipid profile and Hemoglobin A1C levels ordered for baseline reference Social Assessment will be completed and the Shaft Headman will work with patient and family to ensure a suitable and safe disposition Medication adjustment will be made as clinically indicated Continue Mirtazepine 7.5mg po qhs Usual Wellness [employer]oo/Preservation: - Continue-Trazodone 50 mg po QHS & 50 mg po QHS PRN between 10 PM & 2 AM for insomnia - Continue-Melatonin 5 mg po QHS to promote circadian rhythm - Continue- [place]-3 for brain health, reduce impulsivity, and as adjunctive treatment for mood disorder, continue upon discharge given overall benefits. - Continue- B1 prophylaxis with 200 mg po for 5 days The patient agreed on the treatment plan, understood the risk, benefit, alternative treatment, potential consequence of no treatment, and gave informed consent. Estimated days: 3 Post hospital care: primary care provider, psychiatric provider Medications and Allergies Allergies Allergy/AdvReac Type Severity Reaction Status Date / Time aspirin Allergy Unknown Unknown Verified 09/10/20 13:51 Home Medications Medication Instructions Recorded Confirmed Last Taken Type ALPRAZolam [Xanax TAB] 0.5 mg PO TID PRN #90 09/18/20 Unknown Rx Divalproex Sprinkle [Depakote 250 mg PO BID #60 cap 09/18/20 Unknown Rx Sprinkle] risperiDONE [RisperDAL] 0.5 mg PO BID #60 tablet 09/18/20 Unknown Rx traZODone [Desyrel] 75 mg PO QHS #45 tablet 09/18/20 Unknown Rx Active Meds: Active Medications Alprazolam (Alprazolam 0.5 Mg Tab) 0.5 mg PO QAM [facility] Last Admin: 09/21/20 09:26 Dose: 0.5 mg Documented by: Divalproex Sodium (Divalproex Sprinkle 125 Mg Cap) 250 mg PO BID [facility] Last Admin: 09/21/20 09:26 Dose: 250 mg Documented by: Mirtazapine (Mirtazapine 15 Mg Tab) 7.5 mg PO QHS [facility] Last Admin: 09/20/20 21:12 Dose: 7.5 mg Documented by: Risperidone (Risperidone 0.25 Mg Tab) 0.5 mg PO BID [facility] Last Admin: 09/21/20 09:26 Dose: 0.5 mg Documented by: Trazodone HCl (Trazodone 50 Mg Tab) 75 mg PO QHS [facility] Last Admin: 09/20/20 21:13 Dose: 75 mg Documented by: Results - Results Labs/Vitals: Laboratory Last Values Sodium 138 mmol/L (137-145) 09/13/20 19:58 Potassium 3.9 mmol/L (3.6-5.0) 09/13/20 19:58 Chloride 99.6 mmol/L (98-107) 09/13/20 19:58 Carbon Dioxide 33 mmol/L (22-30) H 09/13/20 19:58 Anion Gap 9 mmol/L 09/13/20 19:58 BUN 16 mg/dL (7-17) 09/13/20 19:58 Creatinine 0.5 mg/dL (0.6-1.2) L 09/13/20 19:58 Estimated GFR > 60 ml/min 09/13/20 19:58 BUN/Creatinine Ratio 32 % 09/13/20 19:58 Glucose 92 mg/dL (65-100) 09/13/20 19:58 POC Glucose 92 mg/dL (70-105) 09/12/20 06:22 Hemoglobin A1c 6.0 % (4-6) 09/13/20 19:58 Calcium 9.2 mg/dL (8.4-10.2) 09/13/20 19:58 Total Bilirubin 0.30 mg/dL (0.1-1.2) 09/13/20 19:58 AST 17 units/L (5-40) 09/13/20 19:58 ALT 14 units/L (7-56) 09/13/20 19:58 Alkaline Phosphatase 84 units/L (35-129) 09/13/20 19:58 Total Protein 6.8 g/dL (6.3-8.2) 09/13/20 19:58 Albumin 3.8 g/dL (3.9-5) L 09/13/20 19:58 Albumin/Globulin Ratio 1.3 % 09/13/20 19:58 Triglycerides 136 mg/dL (2-149) 09/13/20 19:58 Cholesterol 175 mg/dL (50-199) 09/13/20 19:58 LDL Cholesterol Direct 106 mg/dL (50-130) 09/13/20 19:58 HDL Cholesterol 50 mg/dL (40-59) 09/13/20 19:58 Cholesterol/HDL Ratio 3.50 % 09/13/20 19:58 TSH 1.400 mlU/mL (0.270-4.200) 09/13/20 19:58 Coronavirus (PCR) Negative (Negative) 09/16/20 Unknown Last Vital Signs Temp 97.3 F L 09/21/20 06:56 Pulse 80 09/21/20 06:56 Resp 20 09/21/20 06:56 BP 107/59 09/21/20 06:56 Pulse Ox 97 09/21/20 06:56
--- NOTE | 2020-09-21 20:07 | Progress Note ---
Assessment and Plan - Patient Problems (1) Cerebral atherosclerosis Status: Acute Plan to address problem: Risk factor reduction, antiplatelet therapy as clinically dictated. (2) Dementia with behavioral disturbance Status: Acute Plan to address problem: Verbal prompting, verbal redirection, benzodiazepine therapy as clinically indicated. History Interval history: 85 YO Female with Vascular Dementia with Behavioral Disturbance, Cerebral Atherosclerosis admitted to [facility] for phychiatric stabilization. No reported nursing events. Hospitalist Physical - Constitutional Vitals: Temp Pulse Resp BP Pulse Ox 97.3 F L 80 20 107/59 97 09/21/20 06:56 09/21/20 06:56 09/21/20 06:56 09/21/20 06:56 09/21/20 06:56 General appearance: Present: no acute distress - EENT Eyes: Present: PERRL, EOM intact ENT: hearing decreased - Neck Neck: Present: supple - Respiratory Respiratory effort: normal Respiratory: bilateral: CTA - Cardiovascular Rhythm: regular Heart Sounds: Present: S1 & S2 - Extremities Extremities: no ischemia Peripheral Pulses: within normal limits - Abdominal General gastrointestinal: soft, non-tender, non-distended - Integumentary Integumentary: Present: clear, dry - Psychiatric Psychiatric: cooperative - Neurologic Neurologic: CNII-XII intact Results - Labs CBC & Chem 7: 09/13/20 19:58 Labs: Laboratory Last Values Sodium 138 mmol/L (137-145) 09/13/20 19:58 Potassium 3.9 mmol/L (3.6-5.0) 09/13/20 19:58 Chloride 99.6 mmol/L (98-107) 09/13/20 19:58 Carbon Dioxide 33 mmol/L (22-30) H 09/13/20 19:58 Anion Gap 9 mmol/L 09/13/20 19:58 BUN 16 mg/dL (7-17) 09/13/20 19:58 Creatinine 0.5 mg/dL (0.6-1.2) L 09/13/20 19:58 Estimated GFR > 60 ml/min 09/13/20 19:58 BUN/Creatinine Ratio 32 % 09/13/20 19:58 Glucose 92 mg/dL (65-100) 09/13/20 19:58 POC Glucose 92 mg/dL (70-105) 09/12/20 06:22 Hemoglobin A1c 6.0 % (4-6) 09/13/20 19:58 Calcium 9.2 mg/dL (8.4-10.2) 09/13/20 19:58 Total Bilirubin 0.30 mg/dL (0.1-1.2) 09/13/20 19:58 AST 17 units/L (5-40) 09/13/20 19:58 ALT 14 units/L (7-56) 09/13/20 19:58 Alkaline Phosphatase 84 units/L (35-129) 09/13/20 19:58 Total Protein 6.8 g/dL (6.3-8.2) 09/13/20 19:58 Albumin 3.8 g/dL (3.9-5) L 09/13/20 19:58 Albumin/Globulin Ratio 1.3 % 09/13/20 19:58 Triglycerides 136 mg/dL (2-149) 09/13/20 19:58 Cholesterol 175 mg/dL (50-199) 09/13/20 19:58 LDL Cholesterol Direct 106 mg/dL (50-130) 09/13/20 19:58 HDL Cholesterol 50 mg/dL (40-59) 09/13/20 19:58 Cholesterol/HDL Ratio 3.50 % 09/13/20 19:58 TSH 1.400 mlU/mL (0.270-4.200) 09/13/20 19:58 Coronavirus (PCR) Negative (Negative) 09/16/20 Unknown Dennis/IV: Voiding Method Toilet Active Medications - Current Medications Current Medications: Generic Name Dose Route Start Last Admin Trade Name Freq PRN Reason Stop Dose Admin Alprazolam 0.5 mg 09/11/20 10:00 09/21/20 09:26 Alprazolam 0.5 Mg Tab PO 0.5 mg QAM BRADLEY Administration Divalproex Sodium 250 mg 09/10/20 22:00 09/21/20 09:26 Divalproex Sprinkle 125 Mg Cap PO 250 mg BID BRADLEY Administration Mirtazapine 7.5 mg 09/19/20 22:00 09/20/20 21:12 Mirtazapine 15 Mg Tab PO 7.5 mg QHS BRADLEY Administration Risperidone 0.5 mg 09/12/20 10:00 09/21/20 09:26 Risperidone 0.25 Mg Tab PO 0.5 mg BID BRADLEY Administration Trazodone HCl 75 mg 09/17/20 22:00 09/20/20 21:13 Trazodone 50 Mg Tab PO 75 mg QHS BRADLEY Administration Nutrition/Malnutrition Assess - Dietary Evaluation Nutrition/Malnutrition Findings: Nutrition Notes Start: 09/16/20 15:12 Freq: Status: Active Protocol: Document 09/16/20 15:12 BRANDONALL (Rec: 09/16/20 15:15 NHALL [id number]) Nutrition Notes Need for Assessment generated from: LOS Initial or Follow up Brief Note Current Diet Regular Height 5 ft 3 in Weight 68.5 kg [place] Body Weight (kg) 52.27 BMI 26.7 Weight Status Appropriate Subjective/Other Information Pt screened for LOS. She has consumed 53% of meals since admission. Percent of energy/protein needs met: 85% energy 68% pro Burn Absent Trauma Absent Current % PO Fair (50-74%) Minimum of two criteria No Is patient on ventilator? No Is Patient Ambulatory and/or Out of Bed Yes REE-([facility]-ambulatory/OOB) [ 1428.869 [id number]] Calculation Used for Recommendations [facility] Additional Notes Pro needs 1-1.2g/k-82g/ day Fluid needs 1ml/kcal Nutrition Intervention Add Supplement/Snack (indicate name/kcal Ensure Enlive BID /protein ) Provides kCal: 700 Provides Protein (gm) 40 Follow-Up By: 09/23/20 Additional Comments F/U: stable intakes
[2020-09-21] MEDS: traZODone 50 MG TAB PO SCH (22:18)
[2020-09-21] MEDS: MIRTAZAPINE 15 MG TAB PO SCH (22:20)
[2020-09-22] MEDS: risperiDONE 0.25 MG TAB PO SCH ×2 (09:41→22:00)
[2020-09-22] MEDS: DIVALPROEX SPRINKLE 125 MG CAP PO SCH ×2 (09:41→21:59)
[2020-09-22] MEDS: ALPRAZolam 0.5 MG TAB PO SCH (09:41)
--- NOTE | 2020-09-22 10:49 | Progress Note ---
Subjective Date of service: 09/22/20 Principal diagnosis: Dementia with behavioral disturbance Subjective Comment: The patient was seen today. She is confused. She calls me to the table to sit down. She is talking about "wanting to go back to the area where she was." She says "I love that area." She says "I am concerned about my health." She denies SI/HI. She says "no, I would never hurt myself." She denies hallucinations of any kind. Reason for continued acute inpatient psychiatric hospitalization: Patient can be discharged, stabilized per psychiatric stand point. She is awaiting placement per . As soon as this is secured the patient is cleared psych-[facility] for discharge. REVIEW OF SYSTEMS Constitutional: Negative for weight loss ENT: Negative for stridor Respiratory: Negative for cough or hemoptysis All other systems reviewed and are negative MENTAL STATUS EXAMINATION General Appearance and Behavior: Age appropriate, good hygiene, wearing appropriate clothes, uncooperative polite with questioning. Cooperation: engaged Psychomotor Behavior: Psychomotor normal Mood: Affect and affective range: Flat Thought Process: Impaired Thought Content: confused Speech: Normal volume, Regular rate and rhythm, Intellectual Functioning: Poor Suicidal Ideation: Denies Homicidal Ideation: Denies Impulse Control: Limited Insight and Judgment: Poor Memory: memory impaired Attention: Distractible, Orientation: Alert, but disoriented and confused Assessment and Plan (1) Dementia with behavioral disturbance Current Visit: Yes Status: Acute Treatment Plan Patient admitted for inpatient psychiatric evaluation, medication adjustment and close monitoring The patient's behavior, mood, sleep and appetite will be closely monitored. Patient enrolled in individual and group therapeutic sessions and encouraged to attend. Patient provided with a safe and structured environment. Patient's physical health needs will be addressed by the Hospitalist. Hospitalist Consulted Labs including CBC, CMP, Lipid profile and Hemoglobin A1C levels ordered for baseline reference Social Assessment will be completed and the [facility] will work with patient and family to ensure a suitable and safe disposition Medication adjustment will be made as clinically indicated No changes made today. Usual Wellness Restorationism/Preservation: - Start Trazodone 50 mg po QHS & 50 mg po QHS PRN between 10 PM & 2 AM for insomnia - Start Melatonin 5 mg po QHS to promote circadian rhythm - Start [place]-3 for brain health, reduce impulsivity, and as adjunctive treatment for mood disorder, continue upon discharge given overall benefits. - Start B1 prophylaxis with 200 mg po for 5 days The patient agreed on the treatment plan, understood the risk, benefit, alternative treatment, potential consequence of no treatment, and gave informed consent. Estimated days: 3 Post hospital care: primary care provider, psychiatric provider Medications and Allergies Allergies Allergy/AdvReac Type Severity Reaction Status Date / Time aspirin Allergy Unknown Unknown Verified 09/10/20 13:51 Home Medications Medication Instructions Recorded Confirmed Last Taken Type ALPRAZolam [Xanax TAB] 0.5 mg PO TID PRN #90 09/18/20 Unknown Rx Divalproex Sprinkle [Depakote 250 mg PO BID #60 cap 09/18/20 Unknown Rx Sprinkle] risperiDONE [RisperDAL] 0.5 mg PO BID #60 tablet 09/18/20 Unknown Rx traZODone [Desyrel] 75 mg PO QHS #45 tablet 09/18/20 Unknown Rx Active Meds: Active Medications Alprazolam ([facility]olam 0.5 Mg Tab) [facility] [place] Admin: 09/22/20 09:41 Dose: 0.5 mg Documented by: Divalproex Sodium (Divalproex Sprinkle 125 Mg Cap) 250 mg PO BID [facility] Last Admin: 09/22/20 09:41 Dose: 250 mg Documented by: Mirtazapine (Mirtazapine 15 Mg Tab) 7.5 mg PO QHS [facility] Last Admin: 09/21/20 22:20 Dose: 7.5 mg Documented by: Risperidone (Risperidone 0.25 Mg Tab) 0.5 mg PO BID [facility] Last Admin: 09/22/20 09:41 Dose: 0.5 mg Documented by: Trazodone HCl (Trazodone 50 Mg Tab) 75 mg PO QHS [facility] Last Admin: 09/21/20 22:18 Dose: 75 mg Documented by: Results - Results Labs/Vitals: Laboratory Last Values Sodium 138 mmol/L (137-145) 09/13/20 19:58 Potassium 3.9 mmol/L (3.6-5.0) 09/13/20 19:58 Chloride 99.6 mmol/L (98-107) 09/13/20 19:58 Carbon Dioxide 33 mmol/L (22-30) H 09/13/20 19:58 Anion Gap 9 mmol/L 09/13/20 19:58 BUN 16 mg/dL (7-17) 09/13/20 19:58 Creatinine 0.5 mg/dL (0.6-1.2) L 09/13/20 19:58 Estimated GFR > 60 ml/min 09/13/20 19:58 BUN/Creatinine Ratio 32 % 09/13/20 19:58 Glucose 92 mg/dL (65-100) 09/13/20 19:58 POC Glucose 92 mg/dL (70-105) 09/12/20 06:22 Hemoglobin A1c 6.0 % (4-6) 09/13/20 19:58 Calcium 9.2 mg/dL (8.4-10.2) 09/13/20 19:58 Total Bilirubin 0.30 mg/dL (0.1-1.2) 09/13/20 19:58 AST 17 units/L (5-40) 09/13/20 19:58 ALT 14 units/L (7-56) 09/13/20 19:58 Alkaline Phosphatase 84 units/L (35-129) 09/13/20 19:58 Total Protein 6.8 g/dL (6.3-8.2) 09/13/20 19:58 Albumin 3.8 g/dL (3.9-5) L 09/13/20 19:58 Albumin/Globulin Ratio 1.3 % 09/13/20 19:58 Triglycerides 136 mg/dL (2-149) 09/13/20 19:58 Cholesterol 175 mg/dL (50-199) 09/13/20 19:58 LDL Cholesterol Direct 106 mg/dL (50-130) 09/13/20 19:58 HDL Cholesterol 50 mg/dL (40-59) 09/13/20 19:58 Cholesterol/HDL Ratio 3.50 % 09/13/20 19:58 TSH 1.400 mlU/mL (0.270-4.200) 09/13/20 19:58 Coronavirus (PCR) Negative (Negative) 09/16/20 Unknown Last Vital Signs Temp 97.3 F L 09/21/20 06:56 Pulse 95 H 09/21/20 19:29 Resp 20 09/21/20 06:56 BP 107/59 09/21/20 06:56 Pulse Ox 98 09/21/20 19:29
[2020-09-22] MEDS: traZODone 50 MG TAB PO SCH (22:00)
[2020-09-22] MEDS: MIRTAZAPINE 15 MG TAB PO SCH (22:00)
[2020-09-23 00:23] VITALS: BP 97/67
[2020-09-23] MEDS: DIVALPROEX SPRINKLE 125 MG CAP PO SCH (09:03)
[2020-09-23] MEDS: ALPRAZolam 0.5 MG TAB PO SCH (09:03)
[2020-09-23] MEDS: risperiDONE 0.25 MG TAB PO SCH (09:03)
--- NOTE | 2020-09-23 09:54 | Discharge Summary ---
Providers - Providers Date of Admission: 09/10/20 09:30 Date of discharge: 09/23/20 Attending physician: KIERRA MORALES MD 09/09/20 20:16 Consult to Physician [CONS] Routine Comment: Consulting Provider: KARMEN RAO Physician Instructions: Reason For Exam: manage medical conditions Primary care physician: [employer] Hospitalization Reason for admission: agitation Admitting Diagnosis: F02.81 - DEMENTIA IN OTH DISEASES CLASSD ELSWHR W BEHAVIORAL DISTURB Condition: Stable Hospital course: The patient was provided inpatient psychiatric treatment with safe and supportive care, medication adjustment, adverse effect monitoring, medical evaluations, medical treatments, assessment and psycho-education. The patient's mood, cognition, behavior, moral support are improved and stabilized. St the time of discharge, the patient had no endangering behavior and no debilitating adverse effects. The patient agreed on potential consequences of no treatment and gave informed consent. Disposition: DC- TO HOME OR SELFCARE Time spent for discharge: 40 Allergies/Adverse Reactions: Allergies aspirin Allergy (Unknown, Verified 09/10/20 13:51) Unknown Vital Signs: Last Vital Signs Temp 97.5 F L 09/22/20 19:25 Pulse 89 09/22/20 19:25 Resp 20 09/22/20 19:25 BP 97/67 09/22/20 19:25 Pulse Ox 98 09/22/20 19:25 Last Lab: Laboratory Last Values Sodium 138 mmol/L (137-145) 09/13/20 19:58 Potassium 3.9 mmol/L (3.6-5.0) 09/13/20 19:58 Chloride 99.6 mmol/L (98-107) 09/13/20 19:58 Carbon Dioxide 33 mmol/L (22-30) H 09/13/20 19:58 Anion Gap 9 mmol/L 09/13/20 19:58 BUN 16 mg/dL (7-17) 09/13/20 19:58 Creatinine 0.5 mg/dL (0.6-1.2) L 09/13/20 19:58 Estimated GFR > 60 ml/min 09/13/20 19:58 BUN/Creatinine Ratio 32 % 09/13/20 19:58 Glucose 92 mg/dL (65-100) 09/13/20 19:58 POC Glucose 92 mg/dL (70-105) 09/12/20 06:22 Hemoglobin A1c 6.0 % (4-6) 09/13/20 19:58 Calcium 9.2 mg/dL (8.4-10.2) 09/13/20 19:58 Total Bilirubin 0.30 mg/dL (0.1-1.2) 09/13/20 19:58 AST 17 units/L (5-40) 09/13/20 19:58 ALT 14 units/L (7-56) 09/13/20 19:58 Alkaline Phosphatase 84 units/L (35-129) 09/13/20 19:58 Total Protein 6.8 g/dL (6.3-8.2) 09/13/20 19:58 Albumin 3.8 g/dL (3.9-5) L 09/13/20 19:58 Albumin/Globulin Ratio 1.3 % 09/13/20 19:58 Triglycerides 136 mg/dL (2-149) 09/13/20 19:58 Cholesterol 175 mg/dL (50-199) 09/13/20 19:58 LDL Cholesterol Direct 106 mg/dL (50-130) 09/13/20 19:58 HDL Cholesterol 50 mg/dL (40-59) 09/13/20 19:58 Cholesterol/HDL Ratio 3.50 % 09/13/20 19:58 TSH 1.400 mlU/mL (0.270-4.200) 09/13/20 19:58 Coronavirus (PCR) Negative (Negative) 09/16/20 Unknown Core Measure Documentation - Palliative Care Palliative Care/ Comfort Measures: Not Applicable - Core Measures Any of the following diagnoses?: none Exam - Constitutional Vitals: Temp Pulse Resp BP Pulse Ox 97.5 F L 89 20 97/67 98 09/22/20 19:25 09/22/20 19:25 09/22/20 19:25 09/22/20 19:25 09/22/20 19:25 General appearance: Present: no acute distress - EENT Eyes: Present: PERRL, EOM intact ENT: hearing intact, clear oral mucosa - Neck Neck: Present: supple, normal ROM - Respiratory Respiratory effort: normal Plan Activity: advance as tolerated Weight Bearing Status: Weight Bear as Tolerated Care Plan Goals: maintain good and stable mental health Plan of Treatment: The patient should be compliant with medications, not to use drugs, and not to drink alcohol. The patient understands that if suicidal ideas, homicidal ideas or any endangering feeling arise, the patient should seek assistance including, but not limited to crisis hotline, and emergency room. Assessment: Dementia with Behavioral Disturbance Follow up with: PRIMARY CARE,MD [Primary Care Provider] - 7 Days Prescriptions: traZODone [Desyrel] 75 mg PO QHS #45 tablet Divalproex Sprinkle [Depakote Sprinkle] 250 mg PO BID #60 cap risperiDONE [RisperDAL] 0.5 mg PO BID #60 tablet ALPRAZolam [Xanax TAB] 0.5 mg PO TID PRN #90 PRN Reason: Anxiety
== END 2020-09-23 12:05 | disposition home or self-care (01) | DRG 884 ==
LOC: 3A 19:42 → UNDOADMIN 19:42 → 5A 09-10 09:30
PROVIDERS: ADMIT Psychiatry & Neurology Psychiatry; ATTEND Psychiatry & Neurology Psychiatry
DX: F01.51 Vascular dementia, unspecified severity, with behavioral disturbance (principal); I67.2 Cerebral atherosclerosis; Z20.822 Contact with and (suspected) exposure to COVID-19; Z79.899 Other long term (current) drug therapy; Z88.6 Allergy status to analgesic agent
CPT/HCPCS: 36415; 71045; 80053; 80061; 82962; 83036; 84443; G0378; U0003